=== PATIENT | female | born 1950 | race Caucasian/White ===

== ENCOUNTER 2021-11-13 11:02 | Emergency (ER) | payer MEDICARE, BC, SELFPAY ==
[2021-11-13 11:44] VITALS: BP 159/64; PULSE 61; RESP 16; TEMP 35.8; O2SAT 98; BMI 23.3
--- NOTE | 2021-11-13 12:10 | CRLHL7_ITS ---
For Patients: As a result of the Century Cures Act, medical imaging exams and procedure reports are released immediately into your electronic medical record. You may view this report before your referring provider. If you have questions, please contact your health care provider. INDICATION: Fall COMPARISON: none TECHNIQUE: A CT volumetric acquisition was performed of the brain without IV contrast. Please note that all CT scans at this facility use dose modulation, iterative reconstruction, and/or weight-based dosing when appropriate to reduce radiation dose to as low as reasonably achievable. FINDINGS: The CT images reveal a normal appearance of the cerebral ventricles and basal cisterns. There is no evidence of intracranial hemorrhage, tissue infarction or mass effect. Mild chronic white matter changes are noted. The mastoid air cells and middle ear cavities are clear. The calvarium appears intact. There is normal aeration of the visualized paranasal sinuses. IMPRESSION: No acute intracranial pathology. Please note that all CT scans at this facility use dose modulation, iterative reconstruction, and/or weight-based dosing when appropriate to reduce radiation dose to as low as reasonably achievable. Dictated by Joel Ayala MD @ 11/13/2021 12:50:54 PM (Electronically Signed)
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
[2021-11-13 12:34] LABS: Appearance Urine Clear (Clear); Bilirubin Urine Negative (Negative); Blood Urine Negative (Negative); Color Urine Yellow (Yellow); Glucose Urine Negative (Negative); Ketones Urine Negative (Negative); Leukocyte Esterase Urine Trace (Negative); Nitrite Urine Negative (Negative); Protein Urine Negative (Negative); Urobilinogen Urine 0.2 (0.2-1.0); pH Urine 7.5 (5.0-8.5)
[2021-11-13] MEDS: ONDANSETRON 2 MG/ML inj 4 MG IVP (12:44)
[2021-11-13] MEDS: 0.9 % SODIUM CHLORIDE 500 ML 500 ML IV (12:44)
[2021-11-13 12:45] VITALS: BP 109/59
[2021-11-13 12:47] LABS: RBC Urine 0-2 (0-2)
[2021-11-13 12:48] LABS: Squamous Epithelial Cell Urine Few (None-Few); WBC Urine 0-2 (0-5)
[2021-11-13 12:54] LABS: Basophils Absolute Auto 0.04 K/uL (0.00-0.30); Basophils Percent Auto 0.7 % (0.0-3.0); Eosinophils Absolute Auto 0.03 K/uL (0.00-0.50); Eosinophils Percent Auto 0.5 % (0.0-7.0); Hematocrit 38.4 % (33.0-51.0); Hemoglobin* 12.8 gm/dL (12.0-16.0); Immature Granulocytes Abs Auto 0.03 K/uL (0.00-0.30); Lymphocytes Absolute Auto 1.34 K/uL (0.90-2.90); Lymphocytes Percent Auto 22.8 % (20-44); Mean Corpuscular HGB Conc 33 gm/dL (32-36); Mean Corpuscular Hemoglobin 29 pg (26-34); Mean Corpuscular Volume 88 fL (80-100); Monocytes Percent Auto 9.5 % (0.0-11.0); Neutrophils Absolute Auto 3.87 K/uL (1.7-7.0); Platelet Count* 287 K/uL (140-440); RDW Coefficient of Variation % 12.2 % (11.5-15.5); Red Blood Count 4.38 m/uL (4.00-5.20); White Blood Count* 5.87 K/uL (4.50-11.00)
[2021-11-13 12:58] LABS: Slide Review Reflex No
[2021-11-13 13:00] VITALS: BP 118/49; PULSE 49; RESP 14; O2SAT 94
[2021-11-13 13:02] VITALS: BP 118/49; BP 125/56; BP 128/66; PULSE 51; PULSE 53; PULSE 54
[2021-11-13 13:05] LABS: Chloride* 98 mmol/L (96-114); Potassium* 3.8 mmol/L (3.6-5.1); Sodium* 135 mmol/L (135-149)
[2021-11-13 13:07] LABS: Creatinine* 0.8 mg/dL (0.5-1.5); Est. Creatinine Clearance* 47.78; Estimated Glomerular Filt Rate 80 ml/min
[2021-11-13 13:08] LABS: Blood Urea Nitrogen* 15 mg/dL (7-30); Calcium* 9.3 mg/dL (8.4-10.6); Carbon Dioxide* 30 mmol/L (20-32); Glucose* 93 mg/dL (60-115)
[2021-11-13 13:30] VITALS: BP 105/43; PULSE 55; RESP 14; O2SAT 96
== END 2021-11-13 13:42 | disposition home or self-care (01) ==
PROVIDERS: Emergency Provider Family Medicine; PCP Internal Medicine
DX: H81.10 Benign paroxysmal vertigo, unspecified ear (principal)
CPT/HCPCS: 36415; 70450; 80048; 81001; 85025; 87086; 93005; 96374; 99284; 99285; J2405; J7120

== ENCOUNTER 2021-12-09 08:14 | Day surgery (SDC) | payer MEDICARE, BC, SELFPAY ==
[2021-12-09] MEDS: KETOROLAC OPHTH 0.5% 1 DROP EYE-LEFT ×2 (08:30→08:35)
[2021-12-09] MEDS: TETRACAINE 0.5% OPHTH 1 DROP EYE-LEFT ×2 (08:30→08:35)
[2021-12-09 08:48] VITALS: BP 129/58; PULSE 52; RESP 14; TEMP 36.8; O2SAT 98
[2021-12-09 08:49] VITALS: BMI 25.1
[2021-12-09] MEDS: SODIUM CHLORIDE 0.9 % (FLUSH) 10 ML SYRINGE IVF (08:55)
--- NOTE | 2021-12-09 08:55 | SUR.PREOP ---
The eye drops brought by the patient (Ketorolac and Prednisolone) are examined and I have determined they are labeled by the patient's pharmacy for this patient as prescribed by the surgeon. The bottles are intact, recently obtained and appear to be correct.
[2021-12-09] MEDS: TETRACAINE 0.5% OPHTH 2 DROP EYE-LEFT (09:27)
[2021-12-09] MEDS: BALANCED SALT IRRIG SOLN 15 ML EYE-LEFT (09:32)
--- NOTE | 2021-12-09 09:56 | W.ANESCHARGE ---
Anesthesia Charges Start Date/Time Anesthesia Start Date: 12/09/21 Anesthesia Start Time: 09:24 Stop Date/Time Anesthesia Stop Date: 12/09/21 Anesthesia Stop Time: 09:56 Summary Emergency: No
[2021-12-09 10:00] VITALS: BP 127/57; PULSE 47; RESP 16; TEMP 36.3; O2SAT 95
--- NOTE | 2021-12-09 10:38 | PM.PROC ---
Procedure Note Date Seen: 12/09/21 Will [facility] bill your pro fee for this procedure?: Yes Procedure Description: SURGEON: Michelle Deluna MD PREOPERATIVE DIAGNOSIS: Nuclear sclerotic cataract, left eye. POSTOPERATIVE DIAGNOSIS: Nuclear sclerotic cataract, left eye. NAME OF OPERATION: Phacoemulsification of cataract with posterior chamber intraocular lens implantation in the left eye. ANESTHESIA: Topical. ESTIMATED BLOOD LOSS: Less than 2 cc. COMPLICATIONS: None. PATHOLOGY SPECIMEN: None. INDICATIONS: See consult note for details. The risks, benefits and alternatives of the procedure were explained to the patient, who elected to proceed and signed informed consent to do so. PROCEDURE: The patient was brought to the pre-holding area where the left eye was identified as the operative eye. I placed my initials above this eye. The patient received eye drops consisting of 0.5% tetracaine, 1% tropicamide, 10% phenylephrine, and 0.5% ketorolac. The patient was then brought to the operating room where the left eye was again identified as the operative eye. The eye was prepped with Betadine and draped in the usual sterile ophthalmic fashion. A #15 super-sharp blade was used to create a paracentesis site. 1% non-preserved intracameral lidocaine was injected into the anterior chamber. Endocoat was injected into the anterior chamber. A 2.4 mm keratome was used to create a three-plane self-sealing incision 1 mm anterior to the temporal limbus. A cystotome was used to create an anterior capsular leaflet. The Utrata forceps were used to extend this to form a continuous curvilinear capsulorrhexis. Hydrodissection was performed. The cataract was removed with phacoemulsification using the [id number] technique. The irrigation and aspiration tip was used to remove the remaining cortex. Healon was injected into the capsular bag. An TERA ZCB00 intraocular lens of 18.5 diopters was injected into the capsular bag. The irrigation and aspiration tip was used to remove the remaining viscoelastic. Balanced salt solution on a cannula was used to hydrate the wound, and the wound was found to be watertight. The pupil was noted to be round. DISPOSITION: The patient was taken to the recovery room and discharged to home in stable condition. The patient was instructed to call me or go to the emergency department with any sudden change, including dramatic loss of vision, severe pain in the eye or eyebrow region, nausea, or vomiting. The patient will follow up in the clinic tomorrow morning. Surgeon: Michelle Deluna MD
== END 2021-12-09 10:27 | disposition home or self-care (01) ==
PROVIDERS: PCP Internal Medicine; Visit Provider Ophthalmology
PROC: (CPT 66984; principal; 2021-12-09 08:15)
DX: H25.12 Age-related nuclear cataract, left eye (principal)
CPT/HCPCS: 66984; 00142; A9270; J2250; J3010; V2632

== ENCOUNTER 2021-12-23 10:45 | Outpatient (RCR) | payer MEDICARE, BC, SELFPAY ==
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
== END 2022-08-03 16:17 | disposition home or self-care (01) ==
PROVIDERS: PCP Internal Medicine; Visit Provider Internal Medicine
DX: H81.10 Benign paroxysmal vertigo, unspecified ear (principal); Z51.89 Encounter for other specified aftercare
CPT/HCPCS: 97162; 97535

== ENCOUNTER 2021-12-30 06:41 | Day surgery (SDC) | payer MEDICARE, BC, SELFPAY ==
[2021-12-30] MEDS: TETRACAINE 0.5% OPHTH 1 DROP EYE-RIGHT ×2 (06:55→07:05)
[2021-12-30 07:04] VITALS: BMI 24.3
[2021-12-30] MEDS: KETOROLAC OPHTH 0.5% 1 DROP EYE-RIGHT ×2 (07:04→07:14)
[2021-12-30 07:09] VITALS: BP 120/52; PULSE 51; RESP 20; TEMP 36.6; O2SAT 98
[2021-12-30] MEDS: SODIUM CHLORIDE 0.9 % (FLUSH) 10 ML SYRINGE IVF (07:16)
[2021-12-30] MEDS: TETRACAINE 0.5% OPHTH 2 DROP EYE-RIGHT (08:00)
[2021-12-30] MEDS: BALANCED SALT IRRIG SOLN 15 ML EYE-RIGHT (08:04)
--- NOTE | 2021-12-30 08:29 | P.PCN_ITS ---
Procedure Note Date Seen: 12/30/21 Will [facility] bill your pro fee for this procedure?: Yes Procedure Description: SURGEON: Michelle Deluna MD PREOPERATIVE DIAGNOSIS: Nuclear sclerotic cataract, right eye. POSTOPERATIVE DIAGNOSIS: Nuclear sclerotic cataract, right eye. NAME OF OPERATION: Phacoemulsification of cataract with posterior chamber intraocular lens implantation in the right eye. ANESTHESIA: Topical. ESTIMATED BLOOD LOSS: Less than 2 cc. COMPLICATIONS: None. PATHOLOGY SPECIMEN: None. INDICATIONS: See consult note for details. The risks, benefits and alternatives of the procedure were explained to the patient, who elected to proceed and signed informed consent to do so. PROCEDURE: The patient was brought to the pre-holding area where the right eye was identified as the operative eye. I placed my initials above this eye. The patient received eye drops consisting of 0.5% tetracaine, 1% tropicamide, 10% phenylephrine, and 0.5% ketorolac. The patient was then brought to the operating room where the right eye was again identified as the operative eye. The eye was prepped with Betadine and draped in the usual sterile ophthalmic fashion. A #15 super-sharp blade was used to create a paracentesis site. 1% non-preserved intracameral lidocaine was injected into the anterior chamber. Endocoat was injected into the anterior chamber. A 2.4 mm keratome was used to create a three-plane self-sealing incision 1 mm anterior to the temporal limbus. A cystotome was used to create an anterior capsular leaflet. The Utrata forceps were used to extend this to form a continuous curvilinear capsulorrhexis. Hydrodissection was performed. The cataract was removed with phacoemulsification using the [id number] technique. The irrigation and aspiration tip was used to remove the remaining cortex. Healon was injected into the capsular bag. An TERA ZCB00 intraocular lens of 18.0 diopters was injected into the capsular bag. The irrigation and aspiration tip was used to remove the remaining viscoelastic. Balanced salt solution on a cannula was used to hydrate the wound, and the wound was found to be watertight. The pupil was noted to be round. DISPOSITION: The patient was taken to the recovery room and discharged to home in stable condition. The patient was instructed to call me or go to the emergency department with any sudden change, including dramatic loss of vision, severe pain in the eye or eyebrow region, nausea, or vomiting. The patient will follow up in the clinic tomorrow morning. Surgeon: Michelle Deluna MD
--- NOTE | 2021-12-30 08:29 | W.ANESCHARGE ---
Anesthesia Charges Start Date/Time Anesthesia Start Date: 12/30/21 Anesthesia Start Time: 07:56 Stop Date/Time Anesthesia Stop Date: 12/30/21 Anesthesia Stop Time: 08:29 Summary Emergency: No
[2021-12-30 08:32] VITALS: BP 127/56; PULSE 47; RESP 16; TEMP 36.2; O2SAT 94
--- NOTE | 2021-12-30 08:34 | W.ANESCHARGE ---
Anesthesia Charges Start Date/Time Anesthesia Start Date: 12/30/21 Anesthesia Start Time: 07:56 Stop Date/Time Anesthesia Stop Date: 12/30/21 Anesthesia Stop Time: 08:29 Summary Emergency: No
== END 2021-12-30 08:50 | disposition home or self-care (01) ==
PROVIDERS: PCP Internal Medicine; Visit Provider Ophthalmology
PROC: (CPT 66984; principal; 2021-12-30 06:45)
DX: H25.11 Age-related nuclear cataract, right eye (principal)
CPT/HCPCS: 66984; 00142; A9270; J2250; J3010; V2632

== ENCOUNTER 2022-07-05 11:07 | Outpatient (CLI) | payer MEDICARE, BC, SELFPAY ==
--- NOTE | 2022-07-05 11:30 | CRLHL7_ITS ---
For Patients: As a result of the Cures Act, medical imaging exams and procedure reports are released immediately into your electronic medical record. You may view this report before your referring provider. If you have questions, please contact your health care provider. BILATERAL SCREENING MAMMOGRAM WITH COMPUTER-AIDED DETECTION AND TOMOSYNTHESIS TECHNIQUE: CC and MLO views were obtained. These mammographic images have been obtained using full-field digital technique. These mammographic images were interpreted with the benefit of computer-aided detection. Breast Tomosynthesis was used in this interpretation. COMPARISON FILM: 06/25/21, 04/21/20, 01/24/19. FINDINGS: There are scattered areas of fibroglandular density IMPRESSION: There is no radiographic evidence for malignancy. ASSESSMENT: BI-RADS Category 1: Negative RECOMMENDATION: Routine screening mammogram in 1 year. A lay language report of this examination will be provided to the patient. Joel Ayala M.D. Diagnostic Radiologist [email or web address] SLOANE/mady Transcribed: 2:29 p.mCeleste earl/Dictated by: Joel Ayala MD @ 07/05/2022 12:05:00 PM (Electronically Signed)
== END 2022-07-05 11:08 | disposition home or self-care (01) ==
PROVIDERS: PCP Internal Medicine; Visit Provider Internal Medicine
DX: Z12.31 Encounter for screening mammogram for malignant neoplasm of breast (principal)
CPT/HCPCS: 77063; 77067

== ENCOUNTER 2022-09-29 13:09 | Outpatient (CLI) | payer MEDICARE, BC, SELFPAY ==
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
== END 2022-09-29 13:10 | disposition home or self-care (01) ==
LOC: RAD 13:10
PROVIDERS: PCP Internal Medicine; Visit Provider Internal Medicine
DX: M85.88 Other specified disorders of bone density and structure, other site (principal)
CPT/HCPCS: 77080

== ENCOUNTER 2023-04-11 06:29 | Outpatient (CLI) | payer MEDICARE, BC, SELFPAY ==
--- NOTE | 2023-04-11 07:54 | W.ANESCHARGE ---
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
--- NOTE | 2023-04-11 08:24 | W.ANESCHARGE ---
Anesthesia Charges Start Date/Time Anesthesia Start Date: 04/11/23 Anesthesia Start Time: 07:18 Stop Date/Time Anesthesia Stop Date: 04/11/23 Anesthesia Stop Time: 07:50 Summary Extremes of Age - Over 70 or under 1: MDA
== END 2023-04-11 06:30 | disposition home or self-care (01) ==
LOC: OP CLINIC 06:30
PROVIDERS: PCP Internal Medicine; Visit Provider Internal Medicine
DX: Z86.010 Personal history of colon polyps (principal)
CPT/HCPCS: 00812; 45378; 99100; J2704

== ENCOUNTER 2023-08-10 08:27 | Outpatient (CLI) | payer MEDICARE, BC, SELFPAY ==
--- NOTE | 2023-08-10 08:45 | MM_ITS ---
Patient: BUDDY THOMPSON Facility:?[facility] Patient ID:?[id number] Site Patient ID:?[id number] Site :?[id number] Study:?XRay-Breast Bilateral 3D W/CAD-08/10/2023 9:00:03 AM Ordering Physician:Francy Du Final Report: BILATERAL SCREENING MAMMOGRAM WITH COMPUTER-AIDED DETECTION AND TOMOSYNTHESIS TECHNIQUE: CC and MLO views were obtained. These mammographic images have been obtained using full-field digital technique. These mammographic images were interpreted with the benefit of computer-aided detection. Breast Tomosynthesis was used in this interpretation. COMPARISON FILM: 07/05/22, 06/25/21, 04/21/20. FINDINGS: There are scattered areas of fibroglandular density. IMPRESSION: There is no radiographic evidence for malignancy. ASSESSMENT: BI-RADS Category 1: Negative RECOMMENDATION: Routine screening mammogram in 1 year. A lay language report of this examination will be provided to the patient. Joel Ayala M.D. Diagnostic Radiologist [email or web address] DSM/sp R& Transcribed: 4:06 p.m. SP/Dictated by: Joel Ayala MD @ 08/15/2023 1:07:00 PM Signed by:?Joel Ayala MD @08/15/2023 5:13:39 PM (Electronic Signature)
== END 2023-08-10 08:28 | disposition home or self-care (01) ==
LOC: MAMMO 08:28
PROVIDERS: PCP Internal Medicine; Visit Provider Internal Medicine
DX: Z12.31 Encounter for screening mammogram for malignant neoplasm of breast (principal)
CPT/HCPCS: 77063; 77067

== ENCOUNTER 2023-09-19 08:26 | Outpatient (CLI) | payer MEDICARE, BC, SELFPAY | END 2023-09-19 08:27 | disposition home or self-care (01) | LOC: NFLDREF 09-21 03:47 | PROVIDERS: PCP Internal Medicine; Referring Provider Internal Medicine; Visit Provider Internal Medicine | DX: Z00.00 Encounter for general adult medical examination without abnormal findings (principal); E78.5 Hyperlipidemia, unspecified; M85.80 Other specified disorders of bone density and structure, unspecified site | CPT/HCPCS: 80061; 82306 ==

== ENCOUNTER 2024-10-02 07:41 | Outpatient (CLI) | payer MEDICARE, BC, SELFPAY | END 2024-10-02 07:42 | disposition home or self-care (01) | LOC: NFLDREF 10-03 10:51 | PROVIDERS: PCP Internal Medicine; Referring Provider Internal Medicine; Visit Provider Internal Medicine | DX: M85.80 Other specified disorders of bone density and structure, unspecified site (principal); E78.5 Hyperlipidemia, unspecified | CPT/HCPCS: 80061; 82306 ==

== ENCOUNTER 2025-02-06 08:06 | Outpatient (CLI) | payer MEDICARE, BC, SELFPAY ==
--- NOTE | 2025-02-06 08:15 | CRLHL7_ITS ---
For Patients: As a result of the Century Cures Act, medical imaging exams and procedure reports are released immediately into your electronic medical record. You may view this report before your referring provider. If you have questions, please contact your health care provider. INDICATION: BILATERAL SCREENING MAMMOGRAM, ASYMPTOMATIC 74 Y/O FEMALE COMPARISON: 08/10/2023, 07/05/2022, 06/25/2021 TECHNIQUE: Digital mammogram in CC and MLO projections including computer-aided detection (CAD) and tomosynthesis. BREAST COMPOSITION: There are scattered areas of fibroglandular density. FINDINGS: No suspicious findings. ASSESSMENT: BI-RADS 1 Negative RECOMMENDATION: Annual screening mammogram. A lay language report of this examination will be provided to the patient. Dictated by: Joel Ayala MD @ 02/08/2025 11:48:05 (Electronically Signed)
== END 2025-02-06 08:07 | disposition home or self-care (01) ==
LOC: MAMMO 08:06
PROVIDERS: PCP Internal Medicine; Visit Provider Internal Medicine
DX: Z12.31 Encounter for screening mammogram for malignant neoplasm of breast (principal)
CPT/HCPCS: 77063; 77067